=== PATIENT | male | born 1970 | race Caucasian/White ===

== ENCOUNTER 2018-03-14 08:10 | Day surgery (SDC) | payer OTHER ==
[~2018-03-14 08:10] MED LIST: CENTRUM SILVER1 EAC4 PO; MULTI VITAMIN1 EACH PO
[2018-03-14] MEDS ORDERED: DUI500 PO (14:22)
[2018-03-14] MEDS ORDERED: ALEVE220 MG PO (14:22)
[2018-03-14] MEDS ORDERED: PERCOCET 5-3251 EACH PO (14:22)
== END 2018-03-14 16:40 | disposition home or self-care (01) ==
LOC: CIR.AMB 08:10
DX: S52.532A Colles' fracture of left radius, initial encounter for closed fracture (principal)
CPT/HCPCS: 25609; C1776; 20902